=== PATIENT | male | born 1970 | race African-American/Black ===

== ENCOUNTER 2020-04-28 11:26 | Emergency (ER) | payer BC ==
[~2020-04-28] VITALS: Ht 188 cm; Wt 117.9 kg
[~2020-04-28 11:26] MED LIST: ANUSOL-HC25 MG RECTAL
[2020-04-28 13:36] LABS: ABSOLUTE NEUTROPHILS 5.3 thou/uL (1.4-8.2); BASOPHILS 0.4 % (0.0-2.0); EOSINOPHILS 0.4 % (0.0-3.0); HEMATOCRIT 43.4 % (42.0-52.0); HEMOGLOBIN 14.4 gm/dL (14.0-18.0); LYMPHOCYTES 20.7 % (24.0-44.0); MCH 28.7 pg (26.0-34.0); MCHC 33.2 g/dL (28.0-37.0); MCV 86.3 fL (80.0-100.0); MONOCYTES 7.6 % (1.0-8.0); PLATELET COUNT 187 thou/uL (150-400); POLYS 70.9 % (36.0-66.0); RBC 5.02 mil/uL (4.50-6.00); RDW 13.8 % (10.5-14.5); WBC 7.5 thou/uL (4.0-11.0)
[2020-04-28 13:47] LABS: CALCIUM 8.9 mg/dL (8.5-10.1); POTASSIUM 4.4 mmol/L (3.5-5.1)
[2020-04-28 13:50] LABS: TOTAL BILIRUBIN 0.3 mg/dL (0.2-1.0); TOTAL PROTEIN 8.2 g/dL (6.4-8.2)
[2020-04-28 15:02] LABS: URINE BILIRUBIN NEGATIVE (Negative); URINE BLOOD NEGATIVE (Negative); URINE CLARITY CLEAR; URINE COLOR YELLOW; URINE GLUCOSE-RANDOM* NEGATIVE (Negative); URINE KETONES NEGATIVE (Negative); URINE LEUKOCYTES-REFLEX NEGATIVE (Negative); URINE NITRITE-REFLEX NEGATIVE (Negative); URINE PROTEIN (DIPSTICK) NEGATIVE (Negative); URINE UROBILINOGEN 0.2 E.U./dl (0.2-1.0)
[2020-04-28] MEDS ORDERED: FLAGYL500 M1 PO (15:21)
[2020-04-28] MEDS ORDERED: CIPRO500 MG PO (15:21)
[2020-04-28] MEDS ORDERED: SENNA PLUS TAB1 EACH PO (15:21)
[2020-04-28] MEDS ORDERED: NORCO 5-325 TA1 EAC2 PO (15:21)
[2020-04-28 15:38] VITALS: BP 158/90
== END 2020-04-28 15:39 | disposition home or self-care (01) ==
LOC: ER 11:26
PROVIDERS: Physician Assistant
DX: K52.9 Noninfective gastroenteritis and colitis, unspecified (principal); R91.1 Solitary pulmonary nodule; R10.84 Generalized abdominal pain; I10 Essential (primary) hypertension

== ENCOUNTER → 2020-05-04 | Outpatient (CLI) | payer BC ==
[~2020-05-04] MED LIST changes: +CIPRO500 MG PO; +FLAGYL500 M1 PO; +NORCO 5-325 TA1 EAC2 PO; +SENNA PLUS TAB1 EACH PO
== END ==
LOC: RAD 08:51
PROVIDERS: ATTEND Pediatrics
DX: J98.11 Atelectasis (principal); J98.4 Other disorders of lung